=== PATIENT | female | born 1930 | race Caucasian/White ===

== ENCOUNTER 2017-10-29 15:32 | Inpatient (IN) | payer MEDICARE, OTHER ==
[2017-10-29] MEDS: ONDANSETRON 4 MG INJ IV (19:24)
[2017-10-29] MEDS: SOD CHLORIDE 0.9% 1,000 ML IV (19:24)
[2017-10-29 19:32] LABS: ADD MAN DIFF? NO
[2017-10-29 19:37] LABS: BASOPHILS % 0.2 % (0.0-2.0); HEMATOCRIT 38.9 % (37.0-47.0); HEMOGLOBIN 12.2 g/dl (12.0-16.0); LYMPHOCYTES # 1.8 10^3/ul (0.8-2.9); LYMPHOCYTES % 33.3 % (15.0-51.0); MEAN CORPUSCULAR HEMOGLOBIN 31.9 pg (29.0-33.0); MEAN CORPUSCULAR HGB CONC 31.4 g/dl (32.0-37.0); MEAN CORPUSCULAR VOLUME 101.6 fl (82.0-101.0); MONOCYTE # 0.4 10^3/ul (0.3-0.9); NEUTROPHIL # 3.2 10^3/ul (1.6-7.5); NEUTROPHILS % 59.3 % (39.0-77.0); PLATELET COUNT 174 10^3/UL (140-415); RED BLOOD COUNT 3.83 10^6/ul (4.20-5.40); RED CELL DISTRIBUTION WIDTH 12.6 % (11.5-14.5)
[2017-10-29 19:37] LABS: WHITE BLOOD COUNT 5.3 10^3/ul (4.8-10.8)
[2017-10-29 20:25] LABS: ALANINE AMINOTRANSFERASE 22 IU/L (13-69); ALBUMIN 1.4 g/dl (3.3-4.9); ALKALINE PHOSPHATASE 26 IU/L (42-121); ANION GAP 3 (8-16); ASPARTATE AMINO TRANSFERASE 9 IU/L (15-46); BILIRUBIN,INDIRECT 0.1 mg/dl (0-1.1); BILIRUBIN,TOTAL 0.1 mg/dl (0.2-1.3); BLOOD UREA NITROGEN 15 mg/dl (7-20); CARBON DIOXIDE 16 mmol/L (21-31); CHLORIDE 128 mmol/L (97-110); CREATININE 0.53 mg/dl (0.44-1.00); SODIUM 145 mmol/L (135-144); TOTAL PROTEIN 3.4 g/dl (6.1-8.1)
[2017-10-29 20:32] LABS: POTASSIUM 2.4 mmol/L (3.5-5.1)
[2017-10-29 20:33] LABS: CALCIUM 4.8 mg/dl (8.4-10.2); GLUCOSE 50 mg/dl (70-220)
[2017-10-29 20:35] LABS: TROPONIN-I < 0.010 ng/ml (0.000-0.120)
[2017-10-29] MEDS: DEXTROSE 5%-0.45% NACL 1,000 ML IV (21:19)
[2017-10-29] MEDS: DEXTROSE 50% 50 ML SYRINGE IV (21:19)
[2017-10-29] MEDS: MAGNESIUM SULFATE 1 GM/D5W 100 ML IVPB (21:20)
[2017-10-29] MEDS: CALCIUM GLUCONATE 10% 2 GM in DEXTROSE 5% 100 ML IVPB (21:32)
[2017-10-29 22:06] LABS: ADD UMIC YES; UR ASCORBIC ACID NEGATIVE (NEGATIVE); UR BACTERIA MODERATE /HPF (NONE SEEN); UR BILIRUBIN (Dip) NEGATIVE (NEGATIVE); UR BLOOD (Dip) 2+ mg/dL (NEGATIVE); UR CLARITY CLOUDY (CLEAR); UR COLOR YELLOW (YELLOW); UR GLUCOSE (Dip) NEGATIVE (NEGATIVE); UR KETONES (Dip) NEGATIVE (NEGATIVE); UR LEUKOCYTE ESTERASE (Dip) 3+ Leu/ul (NEGATIVE); UR NITRITE (Dip) POSITIVE (NEGATIVE); UR NONSQUAMOUS EPITHELIAL CELL 1 /HPF (NONE SEEN); UR RBC 7 /HPF (0-5); UR SPECIFIC GRAVITY (Dip) 1.017 (1.003-1.030); UR SQUAMOUS EPITHELIAL CELL MANY /HPF (FEW); UR TOTAL PROTEIN (Dip) NEGATIVE (NEGATIVE); UR UROBILINOGEN (Dip) NEGATIVE (NEGATIVE); UR WBC > 182 /HPF (0-5)
[2017-10-29] MEDS: POTASSIUM CHLORIDE 100 ML IVPB ×2 (22:44→23:00)
[2017-10-29] MEDS: CEFTRIAXONE 1 GM/50 ML (PMX) 50 ML IVPB (23:20)
[2017-10-30] MEDS ORDERED: ONDANSETRON 4 MG INJ IV (00:30)
[2017-10-30 01:06] LABS: CREATINE KINASE 79 IU/L (23-200)
[2017-10-30 01:15] LABS: CK INDEX 1.7; CK-MB 1.37 ng/ml (0.0-2.4); TROPONIN-I 0.012 ng/ml (0.000-0.120)
[2017-10-30] MEDS: DEXTROSE 5%-0.45% NACL 1,000 ML IV ×3 (01:33→15:32)
[2017-10-30] MEDS: HEPARIN 5,000 UNIT/0.5 ML VIAL SC ×3 (01:35→20:11)
[2017-10-30] MEDS: POTASSIUM CHLORIDE 100 ML IVPB ×3 (02:23→07:00)
[2017-10-30] MEDS: ACETAMINOPHEN 325 MG TAB PO (04:38)
[2017-10-30 07:29] LABS: ADD MAN DIFF? NO
[2017-10-30 07:36] LABS: WHITE BLOOD COUNT 5.8 10^3/ul (4.8-10.8)
[2017-10-30 07:36] LABS: BASOPHILS % 0.3 % (0.0-2.0); HEMATOCRIT 34.7 % (37.0-47.0); LYMPHOCYTES # 1.4 10^3/ul (0.8-2.9); MEAN CORPUSCULAR HEMOGLOBIN 31.4 pg (29.0-33.0); MEAN CORPUSCULAR HGB CONC 31.7 g/dl (32.0-37.0); MEAN CORPUSCULAR VOLUME 99.1 fl (82.0-101.0); MEAN PLATELET VOLUME 9.9 fl (7.4-10.4); MONOCYTE # 0.4 10^3/ul (0.3-0.9); MONOCYTES % 6.2 % (0.0-11.0); NEUTROPHIL # 3.9 10^3/ul (1.6-7.5); NEUTROPHILS % 68.2 % (39.0-77.0); PLATELET COUNT 158 10^3/UL (140-415); RED CELL DISTRIBUTION WIDTH 12.8 % (11.5-14.5)
[2017-10-30 07:50] LABS: CREATINE KINASE 79 IU/L (23-200)
[2017-10-30 08:03] LABS: CK INDEX 1.9; CK-MB 1.53 ng/ml (0.0-2.4); TROPONIN-I 0.016 ng/ml (0.000-0.120)
[2017-10-30 08:12] LABS: ALANINE AMINOTRANSFERASE 18 IU/L (13-69); ALBUMIN 3.2 g/dl (3.3-4.9); ALKALINE PHOSPHATASE 56 IU/L (42-121); ANION GAP 11 (8-16); ASPARTATE AMINO TRANSFERASE 20 IU/L (15-46); BILIRUBIN,INDIRECT 0.4 mg/dl (0-1.1); BILIRUBIN,TOTAL 0.4 mg/dl (0.2-1.3); BLOOD UREA NITROGEN 16 mg/dl (7-20); CALCIUM 9.2 mg/dl (8.4-10.2); CARBON DIOXIDE 22 mmol/L (21-31); CHLORIDE 112 mmol/L (97-110); CHOL/HDL RATIO 3.7 RATIO; CHOLESTEROL 149 mg/dl (100-200); GLUCOSE 103 mg/dl (70-220); HDL CHOLESTEROL 40 mg/dl (33-92); LDL CHOLESTEROL,CALCULATED 82 mg/dl; PHOSPHORUS 3.6 mg/dl (2.5-4.9); POTASSIUM 4.8 mmol/L (3.5-5.1); SODIUM 140 mmol/L (135-144); TOTAL PROTEIN 6.1 g/dl (6.1-8.1); TRIGLYCERIDES 136 mg/dl (0-149)
[2017-10-30 08:36] LABS: IONIZED CALCIUM 1.3 mmol/L (1.1-1.4)
[2017-10-30] MEDS ORDERED: FUROSEMIDE 40 MG TAB PO (09:00)
[2017-10-30] MEDS ORDERED: AMLODIPINE 10 MG TAB PO (09:00)
[2017-10-30] MEDS ORDERED: BENAZEPRIL 20 MG TAB PO (09:00)
[2017-10-30] MEDS: CLOPIDOGREL 75 MG TAB PO (09:07)
[2017-10-30] MEDS: FAMOTIDINE 20 MG TAB PO (09:07)
[2017-10-30] MEDS: CARBAMAZEPINE 200 MG TAB PO (09:07)
[2017-10-30] MEDS: POTASSIUM CHLORIDE (SR) 10 MEQ TAB PO (09:07)
[2017-10-30] MEDS: ATENOLOL 50 MG TAB PO (09:07)
[2017-10-30] MEDS ORDERED: ALBUTEROL/IPRATROPIUM (NEB) 3 ML AMP HHN (11:00)
[2017-10-30 12:20] LABS: HEMOGLOBIN A1C 5.8 % (0-5.9)
[2017-10-30 16:32] LABS: ALANINE AMINOTRANSFERASE 18 IU/L (13-69); ALBUMIN 3.3 g/dl (3.3-4.9); ALBUMIN/GLOBULIN RATIO 1.06; ALKALINE PHOSPHATASE 62 IU/L (42-121); ANION GAP 13 (8-16); ASPARTATE AMINO TRANSFERASE 25 IU/L (15-46); BILIRUBIN,INDIRECT 0.3 mg/dl (0-1.1); BILIRUBIN,TOTAL 0.3 mg/dl (0.2-1.3); BLOOD UREA NITROGEN 16 mg/dl (7-20); CALCIUM 9.4 mg/dl (8.4-10.2); CARBON DIOXIDE 21 mmol/L (21-31); CHLORIDE 111 mmol/L (97-110); CREATININE 0.94 mg/dl (0.44-1.00); GLUCOSE 104 mg/dl (70-220); POTASSIUM 5.3 mmol/L (3.5-5.1); SODIUM 140 mmol/L (135-144); TOTAL PROTEIN 6.4 g/dl (6.1-8.1)
[2017-10-30] MEDS: ATORVASTATIN 10 MG TAB PO (20:04)
[2017-10-30] MEDS: CEFTRIAXONE 1 GM/50 ML (PMX) 50 ML IVPB (21:25)
[2017-10-31] MEDS: DEXTROSE 5%-0.45% NACL 1,000 ML IV (00:33)
[2017-10-31] MEDS: FAMOTIDINE 20 MG TAB PO (08:14)
[2017-10-31] MEDS: CLOPIDOGREL 75 MG TAB PO (08:15)
[2017-10-31] MEDS: ATENOLOL 50 MG TAB PO (08:15)
[2017-10-31] MEDS: HEPARIN 5,000 UNIT/0.5 ML VIAL SC ×2 (08:16→21:44)
[2017-10-31 09:13] LABS: ADD MAN DIFF? NO
[2017-10-31 09:16] LABS: BASOPHILS % 0.4 % (0.0-2.0); HEMATOCRIT 38.4 % (37.0-47.0); HEMOGLOBIN 12.3 g/dl (12.0-16.0); LYMPHOCYTES # 1.6 10^3/ul (0.8-2.9); MEAN CORPUSCULAR HEMOGLOBIN 32.4 pg (29.0-33.0); MEAN CORPUSCULAR VOLUME 101.1 fl (82.0-101.0); MEAN PLATELET VOLUME 10.3 fl (7.4-10.4); MONOCYTE # 0.3 10^3/ul (0.3-0.9); MONOCYTES % 5.9 % (0.0-11.0); NEUTROPHIL # 3.6 10^3/ul (1.6-7.5); NEUTROPHILS % 64.5 % (39.0-77.0); PLATELET COUNT 147 10^3/UL (140-415); RED CELL DISTRIBUTION WIDTH 12.6 % (11.5-14.5)
[2017-10-31 09:16] LABS: WHITE BLOOD COUNT 5.6 10^3/ul (4.8-10.8)
[2017-10-31 09:29] LABS: POSITIVE DIFF @See below
[2017-10-31 09:33] LABS: ANION GAP 8 (8-16); BLOOD UREA NITROGEN 16 mg/dl (7-20); CALCIUM 9.5 mg/dl (8.4-10.2); CARBON DIOXIDE 25 mmol/L (21-31); CHLORIDE 110 mmol/L (97-110); CREATININE 0.87 mg/dl (0.44-1.00); GLUCOSE 101 mg/dl (70-220); POTASSIUM 4.6 mmol/L (3.5-5.1); SODIUM 138 mmol/L (135-144)
[2017-10-31 09:55] LABS: PHOSPHORUS 3.5 mg/dl (2.5-4.9)
[2017-10-31 09:55] LABS: MAGNESIUM 1.9 mg/dl (1.7-2.5)
[2017-10-31] MEDS: ATORVASTATIN 10 MG TAB PO (21:42)
[2017-10-31] MEDS: CEFTRIAXONE 1 GM/50 ML (PMX) 50 ML IVPB (21:42)
[2017-11-01] MEDS: DEXTROSE 5%-0.45% NACL 1,000 ML IV (03:00)
[2017-11-01] MEDS: ATENOLOL 50 MG TAB PO (08:57)
[2017-11-01] MEDS: FAMOTIDINE 20 MG TAB PO (08:57)
[2017-11-01] MEDS: CLOPIDOGREL 75 MG TAB PO (08:57)
[2017-11-01] MEDS: HEPARIN 5,000 UNIT/0.5 ML VIAL SC (09:08)
[2017-11-01 09:32] LABS: ADD MAN DIFF? NO
[2017-11-01 09:41] LABS: WHITE BLOOD COUNT 5.5 10^3/ul (4.8-10.8)
[2017-11-01 09:41] LABS: BASOPHILS % 0.4 % (0.0-2.0); HEMOGLOBIN 12.1 g/dl (12.0-16.0); LYMPHOCYTES # 1.6 10^3/ul (0.8-2.9); LYMPHOCYTES % 28.3 % (15.0-51.0); MEAN CORPUSCULAR HEMOGLOBIN 31.3 pg (29.0-33.0); MEAN CORPUSCULAR VOLUME 100.8 fl (82.0-101.0); MEAN PLATELET VOLUME 10.2 fl (7.4-10.4); MONOCYTE # 0.3 10^3/ul (0.3-0.9); MONOCYTES % 5.4 % (0.0-11.0); NEUTROPHIL # 3.6 10^3/ul (1.6-7.5); NEUTROPHILS % 65.4 % (39.0-77.0); PLATELET COUNT 165 10^3/UL (140-415); RED BLOOD COUNT 3.87 10^6/ul (4.20-5.40); RED CELL DISTRIBUTION WIDTH 12.6 % (11.5-14.5)
[2017-11-01 09:55] LABS: MAGNESIUM 1.9 mg/dl (1.7-2.5)
[2017-11-01 09:55] LABS: PHOSPHORUS 3.7 mg/dl (2.5-4.9)
[2017-11-01 09:59] LABS: ANION GAP 11 (8-16); BLOOD UREA NITROGEN 27 mg/dl (7-20); CALCIUM 9.4 mg/dl (8.4-10.2); CARBON DIOXIDE 26 mmol/L (21-31); CHLORIDE 107 mmol/L (97-110); CREATININE 1.08 mg/dl (0.44-1.00); GLUCOSE 119 mg/dl (70-220); POTASSIUM 4.7 mmol/L (3.5-5.1); SODIUM 139 mmol/L (135-144)
[2017-11-19 14:03] LABS: PTH CALCIUM 9.1 mg/dL (8.6-10.4); PTH INTACT 85 pg/mL (14-64)
== END 2017-11-01 12:22 | disposition home health service (06) | DRG 641 ==
LOC: E/R 15:32 → MS4 21:47
PROVIDERS: Internal Medicine
DX: E87.6 Hypokalemia (principal); N39.0 Urinary tract infection, site not specified; E83.51 Hypocalcemia; E87.2 Acidosis; E86.0 Dehydration; R13.10 Dysphagia, unspecified; F03.90 Unspecified dementia, unspecified severity, without behavioral disturbance, psychotic disturbance, mood disturbance, and anxiety; J44.9 Chronic obstructive pulmonary disease, unspecified; I35.0 Nonrheumatic aortic (valve) stenosis; E16.2 Hypoglycemia, unspecified; I25.10 Atherosclerotic heart disease of native coronary artery without angina pectoris; G50.0 Trigeminal neuralgia; I10 Essential (primary) hypertension; R11.2 Nausea with vomiting, unspecified; E78.5 Hyperlipidemia, unspecified; M81.0 Age-related osteoporosis without current pathological fracture; M19.90 Unspecified osteoarthritis, unspecified site; B96.20 Unspecified Escherichia coli [E. coli] as the cause of diseases classified elsewhere; Z95.5 Presence of coronary angioplasty implant and graft
CPT/HCPCS: 36415; 71045; 80048; 80053; 80061; 81001; 82330; 82550; 82553; 82962; 83036; 83735; 83970; 84100; 84443; 84484; 85025; 87086; 92610; 93005; 93306; 96361; 96374; 96375; 97162; 99291-25